=== PATIENT | female | born 1965 | race Caucasian/White ===

== ENCOUNTER → 2021-05-17 | Outpatient (CLI) | payer BC | LOC: RAD 14:38 | DX: M79.662 Pain in left lower leg (principal) ==

== ENCOUNTER → 2021-07-22 | Outpatient (CLI) | payer BC | LOC: RAD 11:00 → VAS 11:11 → RAD 11:11 | DX: M79.662 Pain in left lower leg (principal); M62.831 Muscle spasm of calf; R22.42 Localized swelling, mass and lump, left lower limb ==